=== PATIENT | female | born 1985 | race Caucasian/White ===

== ENCOUNTER → 2017-10-22 | Day surgery (SDC) | payer OTHER ==
[~2017-10-22] MED LIST: BUPIVACAINE HCL 0.5% INJ 30 ML VIAL INJ ONE; BUPIVACAINE LIPOSOME/PF 266 MG/20 ML IJ ONE; CEFAZOLIN SOD 2 GM/D5W 50ML 50 ML IV ONE; DEXAMETHASONE SOD PHOS INJ 4 MG/ML VIAL ONE; FENTANYL CITRATE/PF 100MCG/2 ML INJ ONE; KETOROLAC TROMETHAMINE 30 MG/ML VIAL ONE; LIDOCAINE HCL 2% LOCAL INJ 5 ML SDV VIAL INJ ONE; MIDAZOLAM HCL 2 MG/2 ML VIAL ONE; NEXIUM40 MG PO; ONDANSETRON HCL INJ 2 MG/ML VIAL ONE; PROPOFOL IV EMULSION 10 MG/ML 20 ML VIAL ONE; SCOPOLAMINE 1.5 MG PATCH ONE; SEVOFLURANE INHAL SOLN 250 ML PEN BTL ONE; VALTREX500 MG PO
[2017-10-22 11:53] LABS: BASOPHILS % 0.2 % (0.0-1.0); EOSINOPHILS # (AUTO) 0.2 (0.0-0.4); EOSINOPHILS % 2.1 % (0.0-6.0); HEMATOCRIT 39.8 % (34.2-44.1); HEMOGLOBIN 13.4 g/dL (12.0-16.0); MEAN CORPUSCULAR HGB CONC 33.7 g/dL (31-35); MONOCYTES # (AUTO) 0.6 (0.2-0.8); MONOCYTES % 7.2 % (4.4-11.3); NEUTROPHILS % 56.3 % (38.7-80.0); PLATELET COUNT 211 x10e3/uL (140-360); RED BLOOD COUNT 4.19 x10e6/uL (3.6-5.1); RED CELL DISTRIBUTION WIDTH 13.1 % (11.7-14.4)
[2017-10-22 12:17] LABS: ALANINE AMINOTRANSFERASE 18 IU/L (0-55); ALBUMIN/GLOBULIN RATIO 1.4 (0.8-2.0); ALKALINE PHOSPHATASE 70 IU/L (40-150); ANION GAP 8.6 mmol/L (8-16); BLOOD UREA NITROGEN 10 mg/dL (7-26); BUN/CREATININE RATIO 14 (6-25); CALCIUM 9.3 mg/dL (8.4-10.2); CARBON DIOXIDE 28 mmol/L (22-29); CHLORIDE 106 mmol/L (98-107); EST GLOMERULAR FILTRATION RATE > 60 ML/MIN (60-); GLUCOSE 81 mg/dL (74-118); POTASSIUM 3.6 mmol/L (3.5-5.1); SODIUM 139 mmol/L (136-145)
--- NOTE | 2017-11-20 21:59 | Operative Report ---
DATE OF PROCEDURE: October 22, 2017 NURSE ORTHOPEDIC: None. PREOPERATIVE DIAGNOSIS 1. Left foot first tarsometatarsal joint instability. 2. Left foot: Hallux valgus deformity. 3. Left foot: Second plantarflexed metatarsal. 4. Left foot: Long third metatarsal. POSTOPERATIVE DIAGNOSIS 1. Left foot first tarsometatarsal joint instability. 2. Left foot: Hallux valgus deformity. 3. Left foot: Second plantarflexed metatarsal. 4. Left foot: Long third metatarsal. PROCEDURE 1. Left foot first tarsometatarsal joint arthrodesis. 2. Left foot: Modified Travis bunionectomy. 3. Left foot: Second metatarsal Caleb osteotomy. 4. Left foot: Third metatarsal Caleb osteotomy. 5. Application of posterior splint. 6. Use of intraoperative fluoroscopy. 7. Left tibial nerve block. HEMOSTASIS: Thigh tourniquet at 250 mmHg. INJECTABLES: 20 mL of Exparel. MATERIALS USED: Kaola100 Lapidus plate and screws along with Kaola100 snap-off screws at the appropriate length. PROCEDURE: After informed consent was obtained, patient was brought to the operating room and placed on the operating table in supine position. General anesthesia was obtained. Pneumatic thigh tourniquet was applied to the left thigh. The left lower extremity was then scrubbed, prepped and draped in usual aseptic manner. Attention was then directed to the dorsal aspect of the left foot where a linear incision was made from proximal to distal, encompassing the 1st tarsometatarsal joint. The incision was deepened down utilizing sharp dissection technique. All vital structures were identified and retracted as necessary. All bleeders were identified, ligated, and cauterized as necessary. Next the articular surfaces were resected from surgical site. Next, the fusion site was thoroughly prepped with heavy fenestration utilizing a 1.5 drill bit along with thorough irrigation of the surgical site. The first tarsometatarsal joint arthrodesis site was then reduced into the appropriate position and temporarily fixated. At this time, intraoperative fluoroscopy was used, which showed good reduction of the deformity. Next, permanent fixation was completed utilizing a 3.5 partially threaded cannulated screw of the appropriate length. Next, the temporary fixation was removed. Intraoperative fluoroscopy was used, which showed good reduction of the deformity. Next, the Lapidus locking plate was placed over the first tarsometatarsal joint arthrodesis site and fixated in place utilizing 6 locking screws of the appropriate length. At this time, intraoperative fluoroscopy was used, which showed good reduction of the deformity and good fixation across the fusion site. Next, the wound was thoroughly irrigated with copious amounts of normal saline. The wound was then coapted, utilizing 2-0 Vicryl, 4-0 Vicryl and 4-0 nylon. Attention was directed to the first metatarsophalangeal joint where a linear incision was made from proximal to distal, encompassing the first metatarsophalangeal joint. The incision was deepened down, utilizing sharp dissection technique. All vital structures were identified and retracted as necessary. All bleeders were identified, ligated, and cauterized as necessary. Next, an inverted L-shaped capsulotomy was performed. The capsule was reflected off posteriorly and laterally, exposing the head of the 1st metatarsal. Next, the hypertrophic medial eminence was resected and removed from the surgical bed, followed by lateral release utilizing sharp and blunt dissection technique. Next, at this time, intraoperative fluoroscopy was used which showed good reduction of the deformity. The wound was irrigated with copious amounts of saline. The wound was then coapted, utilizing 2-0 Vicryl, 4-0 Vicryl and 4-0 nylon. Attention was directed to the 2nd metatarsophalangeal joint, where a linear incision was made from proximal to distal, encompassing the 2nd metatarsophalangeal joint. The incision was deepened down, utilizing sharp and blunt dissection technique. All vital structures were identified and retracted as necessary. All bleeders were identified, ligated, and cauterized as necessary. Next, a linear capsulotomy was performed and the capsule was reflected off medially and laterally, exposing the 2nd metatarsal head. Next, a Caleb osteotomy was performed from dorsal distal to plantar proximal and the capital fragment was then shifted proximally. At this time, intraoperative fluoroscopy was used, which showed good reduction of the deformity. Next, permanent fixation was completed, utilizing two 2-0 snap-off screws of the appropriate length. The overhanging dorsal eminence was resected and removed from the surgical site. The wound was irrigated with copious amounts of saline. The wound was then coapted, utilizing 3-0 Vicryl, 4-0 Vicryl, 4-0 nylon. Attention was directed to the left foot third metatarsophalangeal joint where a linear incision was made from proximal to distal, encompassing the 3rd metatarsophalangeal joint. The incision was deepened down, utilizing sharp and blunt dissection technique. All vital structures were identified and retracted as necessary. All bleeders were identified, ligated, and cauterized as necessary. Next, a linear capsulotomy was performed and capsule was reflected both medially and laterally. Next, osteotomy was performed from dorsal distal to plantar proximal and the capital fragment was then shifted proximally and temporarily fixated. Next, intraoperative fluoroscopy was used which showed good reduction of the deformity. Next, permanent fixation was completed utilizing two 2.0 snap-off screws of the appropriate length. Dorsal eminence was resected and removed from the surgical site. The wound was irrigated with copious amounts of saline. The wound was then coapted, utilizing 2-0 Vicryl, 4-0 Vicryl and 4-0 nylon. Next, the surgical sites were injected with 15 mL of Exparel, followed by a left tibial nerve block consisting of 5 mL of Exparel. The left leg was then placed into a dry sterile dressing consisting of Xeroform, 4 x 4's, Kerlix, and an Dominik wrap. Patient tolerated the procedure and anesthesia well. Patient was transferred back to recovery room with stable vital signs and neurovascular status intact to preop status. Job#: [id number] LONNIE
== END | disposition home or self-care (01) ==
LOC: OR 10:45
PROVIDERS: ATTEND Podiatrist Foot & Ankle Surgery
DX: M20.12 Hallux valgus (acquired), left foot (principal); M25.375 Other instability, left foot; M21.272 Flexion deformity, left ankle and toes; K21.9 Gastro-esophageal reflux disease without esophagitis; F41.9 Anxiety disorder, unspecified; Z91.040 Latex allergy status
CPT/HCPCS: 28292; 28308 ×2; 28740; 36415; 80053; 84702; 85025; C1713 ×6; C9290; J1100; J1885; J2001; J2250; J2405